=== PATIENT | female | born 1995 | race Caucasian/White ===

== ENCOUNTER 2019-11-03 14:27 | Emergency (ER) | payer OTHER ==
[~2019-11-03] VITALS: Ht 162.6 cm; Wt 92.5 kg
--- NOTE | 2019-11-03 14:58 | Emergency Department Note ---
History of Present Illnes History of Present Illness Chief Complaint: Abdominal Complaints History of Present Illness This is a 24 year old female Chief Complaint Comment NECK PAIN SINCE SUNDAY. FULL ROM OF NECK. NO FEVERS. NO HEADACHES. PT AAOX4. AMBULATORY. NO DISTRESS NOTED. PT STATES SHE IS ALSO HERE BECAUSE URGENT CARE TOLD HER TO COME TO ER FOR AN XRAY FOR CONSTIPATION. PT STATES LONG HX OF CONSTIPATION. PT TOOK MILK OF MAG AND LAST BM SUNDAY. MD IN ROOM FOR EVAL. PT NOW STATES BM TODAY...PT COOPERATIVE AND PLEASANT IN TRIAGE. PT TOOK ADVIL FOR NECK PAIN AND HELPED PER PT. 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 Any updates have been documented here. Past Medical History Recent Fever: No Clinical Suspicion of Infectio: No New/Unexplained Change in Ment: No Past Medical History: Anxiety Other Medical History: CONSTIPATION HIVES Past Surgical History: None Social History Smoking Cessation: Unknown if ever smoked Counseling Performed: No Alcohol Use: None Any Illegal Drug Use: No Physically hurt or threatened: No Other Any Pre-Existing Lines (PICC,: No Review of Systems Review of Systems Constitutional: Reports no symptoms EENTM: Reports no symptoms Cardiovascular: Reports no symptoms Respiratory: Reports no symptoms Gastrointestinal: Reports no symptoms, Reports constipation Genitourinary: Reports no symptoms Musculoskeletal: Reports no symptoms, Reports neck pain Integumentary: Reports no symptoms Neurological: Reports no symptoms Psychological: Reports no symptoms Endocrine: Reports no symptoms Hematological/Lymphatic: Reports no symptoms Review of other systems: All other systems negative Physical Exam Related Data Allergies: Coded Allergies: No Known Allergies (Unverified , 11/03/19) Triage Vital Signs Vital Signs Date Time Temp Pulse Resp B/P (MAP) Pulse Ox O2 Delivery O2 Flow Rate FiO2 11/03/19 14:40 98.4 97 16 150/91 100 Room Air Vital signs reviewed: Yes Physical Exam CONSTITUTIONAL Constitutional: Present well-developed, Present well-nourished HENT HENT: Present normocephalic, Present atraumatic, Present oropharynx clear/moist, Present nose normal HENT L/R: Present left ext ear normal, Present right ext ear normal EYES Eyes: Reports PERRL, Reports conjunctivae normal NECK Neck: Present ROM normal, Present other (Tenderness bilateral muscles) PULMONARY Pulmonary: Present effort normal, Present breath sounds normal CARDIOVASCULAR Cardiovascular: Present regular rhythm, Present heart sounds normal, Present capillary refill normal, Present normal rate GASTROINTESTINAL Abdominal: Present soft, Present nontender, Present bowel sounds normal GENITOURINARY Genitourinary: Present exam deferred SKIN Skin: Present warm, Present dry MUSCULOSKELETAL Musculoskeletal: Present ROM normal NEUROLOGICAL Neurological: Present alert, Present oriented x 3, Present no gross motor or sensory deficits PSYCHOLOGICAL Psychological: Present mood/affect normal, Present judgement normal Assessment & Plan Medical Decision Making MDM 24-year-old female presents for neck stiffness. Additionally she endorses some constipation. Last was this morning. She denies any fevers or any other concerns at this time. She is vaccinated. Denies any other medical problems. Examination shows an overall well-appearing female in no acute distress, vital signs stable and within except limits. Doubt meningitis. Patient denies trauma doubt any significant osseous abnormality. Diagnosis favors muscular pain. Instructed her to use Advil for her neck pain and MiraLAX for her constipation. She'll follow up with her primary care provider or return to emergency department for worsening symptoms. Patient's appropriate for discharge. Reassessment Reassessment time: 14:57 Reassessment Well, appearing, NAD Assessment & Plan Final Impression: (1) Neck pain Depart Disposition: HOME, SELF-CARE Last Vital Signs Date Time Temp Pulse Resp B/P (MAP) Pulse Ox O2 Delivery O2 Flow Rate FiO2 11/03/19 14:40 98.4 97 16 150/91 100 Room Air SHAHLA AL MD Nov 03, 2019 14:58
[2019-11-04] MEDS ORDERED: ZOFRAN4 MG PO (07:45)
== END 2019-11-03 15:00 | disposition home or self-care (01) ==
LOC: ER 14:58
DX: M54.2 Cervicalgia (principal); F41.9 Anxiety disorder, unspecified; K59.00 Constipation, unspecified
CPT/HCPCS: 99282

== ENCOUNTER 2019-11-04 06:24 | Emergency (ER) | payer OTHER ==
[~2019-11-04] VITALS: Ht 162.6 cm; Wt 92.5 kg
--- OUTSIDE RECORDS SUMMARY | 2019-11-04 06:39 | XMS REPORT | Continuity of Care Document ---
Author Author [facility] Organization [facility] Address [address] [place] [address] Phone Unavailable Care Team Providers Care Associate Field Service Engineer Name Role Phone NO, PCP PCP Unavailable Payers Payer Name Policy Type Policy Number Effective Date Expiration Date Jose G Curry o [id number] [facility] Problems Condition Name Condition Details Condition Category Status Onset Date Resolution Date Last Treatment Date Treating Clinician Comments Source Neck pain Problem Active [facility] Allergies, Adverse Reactions, Alerts This patient has no known allergies or adverse reactions. Social History Social Habit Start Date Stop Date Quantity Comments Source Sex Assigned At 1995 00:00:00 1995 00:00:00 Female [facility] Medications This patient has no known medications. Vital Signs Vital Name Observation Time Observation Value Comments Source Weight 2019-11-03 14:40:00 204 [lb_av] [facility] BMI (Body Mass Index) 2019-11-03 14:40:00 35.0 kg/m2 [facility] Procedures This patient has no known procedures. Plan of Care Planned Activity Planned Date Details Comments Source Instructions Abdominal Pain - Adult [facility] Instructions Constipation - Adult [facility] Encounters Start Date/Time End Date/Time Encounter Type Admission Type [facility] Care Department Encounter ID Source 2019-11-03 14:58:00 2019-11-03 15:00:00 Departed Emergency Room [facility] [id number] [facility] Results This patient has no known results.
--- NOTE | 2019-11-04 06:41 | Emergency Department Note ---
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 Any updates have been documented here. Past Medical History Recent Fever: No Clinical Suspicion of Infectio: No New/Unexplained Change in Ment: No Past Medical History: Anxiety Other Medical History: CONSTIPATION HIVES Past Surgical History: None Social History Physically hurt or threatened: No Review of Systems Review of Systems Constitutional: Reports no symptoms EENTM: Reports no symptoms Cardiovascular: Reports no symptoms Respiratory: Reports no symptoms Gastrointestinal: Reports as per HPI, Reports abdominal pain (Discomfort, no discrete pain), Reports diarrhea, Reports nausea, Reports vomiting Genitourinary: Reports no symptoms Musculoskeletal: Reports no symptoms Integumentary: Reports no symptoms Neurological: Reports no symptoms Psychological: Reports no symptoms Endocrine: Reports no symptoms Hematological/Lymphatic: Reports no symptoms Physical Exam Related Data Allergies: Coded Allergies: No Known Allergies (Unverified , 11/03/19) Triage Vital Signs Vital Signs Date Time Temp Pulse Resp B/P (MAP) Pulse Ox O2 Delivery O2 Flow Rate FiO2 11/04/19 06:27 99.5 116 18 120/80 99 Room Air Vital signs reviewed: Yes Physical Exam CONSTITUTIONAL Constitutional: Present well-developed, Present well-nourished HENT HENT: Present normocephalic, Present atraumatic, Present oropharynx clear/moist, Present nose normal HENT L/R: Present left ext ear normal, Present right ext ear normal EYES Eyes: Reports PERRL, Reports conjunctivae normal NECK Neck: Present ROM normal PULMONARY Pulmonary: Present effort normal, Present breath sounds normal CARDIOVASCULAR Cardiovascular: Present regular rhythm, Present heart sounds normal, Present capillary refill normal, Present normal rate GASTROINTESTINAL Abdominal: Present soft, Present nontender, Present bowel sounds normal GENITOURINARY Genitourinary: Present exam deferred SKIN Skin: Present warm, Present dry MUSCULOSKELETAL Musculoskeletal: Present ROM normal NEUROLOGICAL Neurological: Present alert, Present oriented x 3, Present no gross motor or sensory deficits PSYCHOLOGICAL Psychological: Present mood/affect normal, Present judgement normal Results Laboratory Lab results reviewed: Yes Assessment & Plan Medical Decision Making MDM 24-year-old female with no reported past medical history who presents for diarrhea, nausea, vomiting. She was seen yesterday for neck pain and constipation. She started taking MiraLAX since been having bowel movements but now is having some nausea and vomiting. Examination shows no focal abdominal tenderness, vital signs stable, within acceptable limits. Initial differential significant for versus appendicitis versus cholecystitis versus gastroenteritis versus other diarrheal illness. Doubt appendicitis, cholecystitis as there is no focal abdominal tenderness. She is given Zofran and 1 L of crystalloid with moderate resolution of her symptoms. Laboratory workup is largely unremarkable. I discussed management with patient and will prescribe her Zofran instructed her to increase fluid consumption. She will follow-up with her primary care provider or return to the emergency department for new or worsening symptoms such as localized abdominal pain. Patient is appropriate for discharge. Reassessment Reassessment time: 07:51 Reassessment Well appearing, NAD. Nausea improved Assessment & Plan Final Impression: (1) Diarrhea Depart Disposition: HOME, SELF-CARE Last Vital Signs Date Time Temp Pulse Resp B/P (MAP) Pulse Ox O2 Delivery O2 Flow Rate FiO2 11/04/19 06:27 99.5 116 18 120/80 99 Room Air Home Meds Active Scripts Ondansetron Hcl* (ZOFRAN*) 4 Mg Tablet, 4 MG PO Q8H for nausea, #10 Prov:SHAHLA AL MD 11/04/19 Medications in the ED Ondansetron HCl 4 mg Q4H PRN IV NAUSEA AND VOMITING; Start 11/04/19 at 06:45; Stop 12/04/19 at 06:44; Status UNV Sodium Chloride 1,000 ml @ 100 mls/hr Q10H IV ; Start 11/04/19 at 06:45; Stop 12/04/19 at 06:44; Status UNV SHAHLA AL MD Nov 04, 2019 06:41
[2019-11-04] MEDS ORDERED: SODIUM CHLORIDE 0.9% 1000ML 1,000 ML IV SCH (06:45)
[2019-11-04] MEDS ORDERED: ONDANSETRON HCL INJ 2MG/ML 2ML 2 MG/ML VIAL IV PRN (06:45)
[2019-11-04 06:47] LABS: BASOPHILS % 0.3 % (0.0-1.0); EOSINOPHILS % 0.3 % (0.0-6.0); HEMOGLOBIN 12.6 g/dL (12.0-16.0); LYMPHOCYTES # (AUTO) 0.6 (1.0-3.2); LYMPHOCYTES % 5.5 % (18.0-39.1); MEAN CORPUSCULAR HEMOGLOBIN 27.5 pg (28-32); MEAN CORPUSCULAR HGB CONC 32.3 g/dL (31-35); MEAN CORPUSCULAR VOLUME 85.2 fL (81-99); MONOCYTES # (AUTO) 1.4 (0.2-0.8); MONOCYTES % 12.6 % (4.4-11.3); NEUTROPHILS # (AUTO) 9.3 (2.1-6.9); PLATELET COUNT 271 x10e3/uL (140-360); RED BLOOD COUNT 4.58 x10e6/uL (3.6-5.1); RED CELL DISTRIBUTION WIDTH 13.2 % (11.7-14.4)
[2019-11-04 06:51] LABS: CLARITY,URINE CLEAR (CLEAR); COLOR,URINE YELLOW (YELLOW); KETONES,URINE 2+ (NEGATIVE); LEUKOCYTE ESTERASE ,URINE NEGATIVE (NEGATIVE); NITRITE,URINE NEGATIVE (NEGATIVE); PROTEIN,URINE DIPSTICK NEGATIVE (NEGATIVE); URINE UROBILINOGEN 0.2 mg/dL (0.2 - 1)
--- NOTE | 2019-11-04 06:51 | NUR ---
Report to RELL Fink
[2019-11-04 06:52] LABS: BILIRUBIN,URINE NEGATIVE (NEGATIVE)
[2019-11-04 07:04] LABS: WBC,URINE (MAN) 0-5 /HPF (0-5)
[2019-11-04 07:05] LABS: BACTERIA,URINE MANY /HPF; EPITHELIAL CELLS,URINE MODERATE /LPF
[2019-11-04 07:15] LABS: ALANINE AMINOTRANSFERASE 24 IU/L (0-55); ALBUMIN 3.8 g/dL (3.5-5.0); ALBUMIN/GLOBULIN RATIO 1.1 (0.8-2.0); ALKALINE PHOSPHATASE 76 IU/L (40-150); ANION GAP 13.1 mmol/L (8-16); BLOOD UREA NITROGEN 8 mg/dL (7-26); BUN/CREATININE RATIO 11 (6-25); CALCIUM 9.4 mg/dL (8.4-10.2); CARBON DIOXIDE 25 mmol/L (22-29); CHLORIDE 103 mmol/L (98-107); CREATININE, SERUM 0.73 mg/dL (0.57-1.11); EST GLOMERULAR FILTRATION RATE > 60 ML/MIN (60-); GLUCOSE 109 mg/dL (74-118); POTASSIUM 4.1 mmol/L (3.5-5.1); SODIUM 137 mmol/L (136-145)
[2019-11-04 07:27] LABS: LIPASE 21 U/L (8-78)
[2019-11-04 07:34] LABS: HCG,QUANTITATIVE < 1.20 mIU/mL (0-10)
[2019-11-04] MEDS ORDERED: ZOFRAN4 MG PO (07:45)
== END 2019-11-04 08:36 | disposition home or self-care (01) ==
LOC: ER 06:33
DX: R19.7 Diarrhea, unspecified (principal); R10.30 Lower abdominal pain, unspecified; R11.2 Nausea with vomiting, unspecified; F41.9 Anxiety disorder, unspecified
CPT/HCPCS: 36415; 80053; 81001; 83690; 84702; 85025; 99284; J2405; J7030

== ENCOUNTER → 2024-02-15 | Outpatient (REF) | payer BC ==
[~2024-02-15] MED LIST: ZOFRAN4 MG PO
== END ==
LOC: US 12:48
PROVIDERS: ATTEND Internal Medicine
DX: R22.1 Localized swelling, mass and lump, neck (principal)
CPT/HCPCS: 76536